=== PATIENT | male | born 1935 | race Caucasian/White ===

== ENCOUNTER → 2020-11-26 | Outpatient (CLI) | payer MEDICARE ==
--- NOTE | 2020-11-26 13:42 | MR ---
EXAMINATION TYPE: MR brain wo con DATE OF EXAM: 11/26/2020 COMPARISON: NONE HISTORY: Memory loss, Mental status change TECHNIQUE: Multiplanar, multisequence imaging of the brain and brainstem is performed without IV cont rast. FINDINGS: Diffusion weighted images demonstrate no evidence of a recent infarct or other diffusion abnormality. There is moderate ventricular and sulcal prominence. Focal and confluent areas of T2 hyperintensity g reatest in the deep and periventricular white matter. Midline structures demonstrate normal morphology. Thinning of the corpus callosum noted. The cranioce rvical junction appears within normal limits. Normal vascular flow voids are present. The visualized sinuses are clear and the globes are intact. IMPRESSION: Moderate diffuse cerebral atrophy and advanced chronic small vessel ischemic change.
== END | disposition home or self-care (01) ==
LOC: RADMRIMAIN 10:43
PROVIDERS: ATTEND Psychiatry & Neurology Neurology
DX: I67.82 Cerebral ischemia (principal); G31.9 Degenerative disease of nervous system, unspecified
CPT/HCPCS: 70551

== ENCOUNTER → 2021-03-24 | Outpatient (CLI) | payer MEDICARE ==
--- NOTE | 2021-03-24 15:33 | XR ---
EXAMINATION TYPE: XR facial bones complete DATE OF EXAM: 03/24/2021 COMPARISON: NONE HISTORY: Fall and pain TECHNIQUE: 3 views submitted FINDINGS: There is mucosal thickening involving the maxillary sinuses. There is a linear lucency involving nasal bridge. Remaining osseous structures intact. IMPRESSION: Correlate for nasal bridge fracture.
--- NOTE | 2021-03-24 15:36 | XR ---
EXAMINATION TYPE: XR humerus RT DATE OF EXAM: 03/24/2021 COMPARISON: NONE HISTORY: Pain TECHNIQUE: 2 views submitted. 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 Arthropathy of the AC joint. Humerus is intact. IMPRESSION: 1. No acute fracture or dislocation. 2. 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
--- NOTE | 2021-03-24 15:38 | XR ---
EXAMINATION TYPE: XR shoulder complete RT DATE OF EXAM: 03/24/2021 COMPARISON: NONE HISTORY: Pain TECHNIQUE: Three views are submitted. FINDINGS: The osseous structures are intact. There is no acute fracture or dislocation. AC joint arthropathy. IMPRESSION: 1. No acute process.
== END | disposition home or self-care (01) ==
LOC: RADXRMAIN 14:14
PROVIDERS: ATTEND Family Medicine
DX: M79.621 Pain in right upper arm (principal); M25.511 Pain in right shoulder; R51.9 Headache, unspecified; S09.93XA Unspecified injury of face, initial encounter; S49.91XA Unspecified injury of right shoulder and upper arm, initial encounter
CPT/HCPCS: 70150

== ENCOUNTER → 2023-10-08 | Outpatient (CLI) | payer MEDICARE ==
[2023-10-08 15:19] LABS: Basophils # (A) 0.03 X 10*3/uL (0.00-0.10); Basophils % (A) 0.8 %; Eosinophils # (A) 0.02 X 10*3/uL (0.04-0.35); Eosinophils % (A) 0.5 %; HCT 35.4 % (39.6-50.0); HGB 11.8 g/dL (13.0-17.0); Immature Grans, Automated 0 %; Lymphocytes # (A) 1.22 X 10*3/uL (0.90-5.00); Lymphocytes % (A) 32.8 %; MCH 32.9 pg (27.0-32.0); MCHC 33.3 g/dL (32.0-37.0); MCV 98.6 FL (80.0-97.0); Mean Platelet Volume 9.1 FL (9.5-12.2); Monocytes # (A) 0.25 X 10*3/uL (0.20-1.00); Monocytes % (A) 6.7 %; NRBC Per 100 WBC 0 X 10*3/uL (0.00-0.01); Neutrophils % (A) 59.2 %; Platelet Count 126 X 10*3/uL (140-440); RBC 3.59 X 10*6/uL (4.40-5.60); RDW 12.8 % (11.5-14.5); WBC 3.72 X 10*3/uL (4.50-10.00)
[2023-10-08 15:42] LABS: ALT 27 U/L (10-49); AST 32 U/L (14-35); Albumin 3.8 g/dL (3.8-4.9); Alkaline Phosphatase 74 U/L (41-126); BUN/Creat Ratio 13.79 Ratio (12.00-20.00); Blood Urea Nitrogen 19.3 mg/dL (9.0-27.0); Calcium 8.9 mg/dL (8.7-10.3); Carbon Dioxide 27.3 mmol/L (21.6-31.8); Chloride 106 mmol/L (96-109); Chol/HDL Ratio 3.53 Ratio; Glucose 100 mg/dL (70-110); LDL Cholesterol,Calculated 109.6 mg/dL (0.0-131.0); Potassium 4.3 mmol/L (3.5-5.5); Sodium 141 mmol/L (135-145); T4, Free (Free Thyroxine) 1.28 ng/dL (0.80-1.80); Total Bilirubin 1.3 mg/dL (0.3-1.2); Total Protein 5.8 g/dL (6.2-8.2)
== END | disposition home or self-care (01) ==
LOC: LABWHC1 08:26
PROVIDERS: ATTEND Psychiatry & Neurology Neurology
DX: N40.0 Benign prostatic hyperplasia without lower urinary tract symptoms (principal); E03.9 Hypothyroidism, unspecified; N18.30 Chronic kidney disease, stage 3 unspecified
CPT/HCPCS: 36415; 80053; 80061; 84153; 84439; 84443; 85025